=== PATIENT | female | born 2000 | race Two or more races ===

== ENCOUNTER 2020-01-23 13:08 | Emergency (ER) | payer SELFPAY ==
[~2020-01-23] VITALS: Ht 165.1 cm; Wt 61.7 kg
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
--- NOTE | 2020-01-23 13:28 | NUR ---
DR BATRES AT BEDSIDE FOR EVAL.
--- NOTE | 2020-01-23 13:46 | NUR ---
HOME IMPROVEMENT INSTALLER AT BEDSIDE FOR BLOOD DRAW.
--- NOTE | 2020-01-23 14:32 | NUR ---
DR HARVEY AT BEDSIDE FOR EVAL.
[2020-01-23 14:37] LABS: HEMATOCRIT 32 % (33-45); HEMOGLOBIN 9.7 g/dL (11.5-14.8); LYMPHOCYTES # (AUTO) 0.9 /CMM (0.8-4.8); LYMPHOCYTES % (AUTO) 4.8 % (20.0-44.0); MEAN CORPUSCULAR HGB CONC 30 g/dl (31.0-36.0); MEAN CORPUSCULAR VOLUME 73 fL (82-100); MONOCYTES # (AUTO) 0.9 /CMM (0.1-1.30); MONOCYTES % (AUTO) 4.8 % (2.0-12.0); NEUTROPHILS # (AUTO) 16.8 /CMM (1.8-8.9); NEUTROPHILS % (AUTO) 90.4 % (43.0-81.0); PLATELET COUNT (AUTO) 279 /CMM (150-450); RED BLOOD CELL COUNT(AUTO) 4.44 MIL/uL (4.0-5.2); WHITE BLOOD COUNT (AUTO) 18.6 K/uL (4.3-11.0)
[2020-01-23 14:39] LABS: APPEARANCE,URINE Clear (CLEAR); BILIRUBIN,URINE Negative (NEGATIVE); BLOOD, URINE Trace-intact Ery/uL (NEGATIVE); COLOR,URINE Yellow (YELLOW); KETONES,URINE Negative (NEGATIVE); LEUKOCYTE ESTERASE ,URINE Negative (NEGATIVE); NITRITE, URINE Negative (NEGATIVE); PH,URINE 5.5 (5.0-8.0); PROTEIN,URINE 30 mg/dl (NEGATIVE); UGLUCOSE Negative (NEGATIVE); UROBILINOGEN,URINE 0.2 EU/dL (0.2)
[2020-01-23 14:40] LABS: RBC,URINE 0-2 /HPF (0-2); WBC,URINE 0-2 /HPF (0-3)
[2020-01-23 14:41] LABS: BACTERIA,URINE Few /HPF (None Seen); SQUAMOUS EPITHELIAL CELL,UR Few /HPF (None Seen)
[2020-01-23 14:42] LABS: CALCIUM, SERUM 8.9 mg/dL (8.5-10.1); CARBON DIOXIDE 28 mmol/L (21-32); CHLORIDE 102 mmol/L (98-107); CREATININE 0.6 mg/dL (0.6-1.3); GLUCOSE 114 mg/dL (74-106); POTASSIUM 3.9 mmol/L (3.5-5.1); SODIUM SERUM 138 mmol/L (136-145); UREA NITROGEN, BLOOD 19 mg/dL (7-18)
[2020-01-23 14:47] LABS: ACETAMINOPHEN 0 ug/ml (10-30); ALANINE AMINOTRANSFERASE 29 U/L (12-78); ALBUMIN 3.9 g/dL (3.4-5.0); ALCOHOL, BLOOD < 3 mg/dL (0-0); ALKALINE PHOSPHATASE 72 U/L (46-116); ASPARTATE AMINOTRANSFERASE 24 U/L (15-37); BILIRUBIN,TOTAL 0.1 mg/dL (0.2-1.0); SALICYLATE 0.5 mg/dL (2.8-20.0); TOTAL PROTEIN, SERUM 8.3 g/dL (6.4-8.2)
[2020-01-23 15:08] LABS: BAND % (MANUAL) 1 % (0.0-5.0); LYMPHOCYTES % (MANUAL) 6 % (16-48); MONOCYTES % (MANUAL) 4 % (0-11.0); NEUTROPHILS % (MANUAL) 89 (42-76)
--- NOTE | 2020-01-23 17:05 | NUR ---
PT WAS BROUGHT BACK FROM RADIOLOGY REFUSING HEAD CT SCAN. Addendum: 01/23/20 [address] CANDICE TORO
--- NOTE | 2020-01-23 19:25 | NUR ---
REPORT GIVEN MARQUITA LEAHY FOR EDWAR.
--- NOTE | 2020-01-23 19:57 | NUR ---
PT RESTING COMFORTABLY. PROVIDED WITH BLANKET AND WATER.
--- NOTE | 2020-01-23 20:59 | NUR ---
Patient discharged to home in stable condition. Written and verbal after care instructions given. Patient verbalizes understanding of instruction. Pt signed homeless waiver.
[2020-01-23 21:00] VITALS: BP 121/71
== END 2020-01-23 21:02 | disposition home or self-care (01) ==
LOC: ER 13:15
DX: F15.10 Other stimulant abuse, uncomplicated (principal); R45.1 Restlessness and agitation; R41.82 Altered mental status, unspecified; R53.1 Weakness
CPT/HCPCS: 36415; 71045; 80048; 80076; 80305; 80307 ×2; 80329; 81001; 82962; 84703; 85025; 99285; G0480; 81000-TC